=== PATIENT | female | born 1995 | race African-American/Black ===

== ENCOUNTER 2020-10-26 15:29 | Emergency (ER) | payer OTHER ==
[2020-10-26] MEDS ORDERED: NORCO 5-325 TA1 EACH PO (17:36)
[2020-10-26] MEDS ORDERED: KEFLEX250 MG PO (17:36)
== END 2020-10-26 17:50 | disposition home or self-care (01) ==
LOC: FER 15:29
DX: H60.91 Unspecified otitis externa, right ear (principal); K04.7 Periapical abscess without sinus; F17.210 Nicotine dependence, cigarettes, uncomplicated
CPT/HCPCS: 99283; J1885